=== PATIENT | male | born 1960 | race Caucasian/White ===

== ENCOUNTER → 2021-06-08 | Outpatient (CLI) | payer OTHER ==
[~2021-06-08] MED LIST: ECOTRIN81 MG PO; IMDUR ER TAB 3030 MG PO; LIPITOR TAB 2020 MG PO; NITROSTAT0.4 MG SL; XALATAN OP SOL2.5 ML OP
== END ==
LOC: CT 14:33
DX: R63.4 Abnormal weight loss (principal); M16.0 Bilateral primary osteoarthritis of hip
CPT/HCPCS: 36415; 82565; Q9967

== ENCOUNTER → 2022-08-17 | Outpatient (CLI) | payer OTHER | LOC: CT 07:27 | DX: I65.23 Occlusion and stenosis of bilateral carotid arteries (principal); I82.B22 Chronic embolism and thrombosis of left subclavian vein | CPT/HCPCS: 70498; Q9967 ==